=== PATIENT | female | born 1995 | race Caucasian/White ===

== ENCOUNTER 2018-08-02 22:31 | Emergency (ER) | payer MEDICAID ==
[2018-08-02 22:34] VITALS: BMI 24.0
[2018-08-02] MEDS ORDERED: Sodium Chloride 0.9% 1,000 ML IV STA (22:48)
[2018-08-02 23:52] VITALS: O2SAT 98
--- NOTE | 2018-08-02 23:57 | ED PDOC ---
Arrival/HPI - General Historian: Patient <Demetria Cadena - Last Filed: 08/03/18 02:09> <Prince Tejeda - Last Filed: 08/03/18 02:49> - General Chief Complaint: Abdominal Pain Time Seen by Provider: 08/02/18 22:44 - History of Present Illness Narrative History of Present Illness (Text): 08/02/18 23:54 23-year-old female presents today with many month history of lower abdominal pain patient states she's been having abdominal pain for at least the past 7 months. Patient states the pains been intermittent but always seems to be worse after running. Patient states she is also dyspareunia. patient states during intercourse the pain is always in the same spot which she points to the suprapubic region. Patient denies vaginal bleeding or vaginal discharge. She denies radiation of pain to the back she is complaining of nausea. Patient states symptoms worsened today after running. Patient states she's been seen multiple times at other hospitals and has been told that there is nothing wrong with her. (Demetria Cadena) Past Medical History - Provider Review Nursing Documentation Reviewed: Yes - Travel History Have you recently traveled outside [place] w/in the past 3 mons?: No - Infectious Disease Hx of Infectious Diseases: None - Neurological Hx Migraine: Yes - Renal Hx Renal Disorder: No - Endocrine/Metabolic Hx Endocrine Disorders: No - Hematological/Oncological Hx Blood Disorders: No - Integumentary Hx Dermatological Disorder: No - Musculoskeletal/Rheumatological Hx Musculoskeletal Disorders: No - Gastrointestinal Hx Gastrointestinal Disorders: No - Genitourinary/Gynecological Hx Genitourinary Disorders: No - Psychiatric Hx Psychophysiologic Disorder: No Hx Substance Use: No - Anesthesia Hx Anesthesia: No <Demetria Cadena - Last Filed: 08/03/18 02:09> Family/Social History - Physician Review Nursing Documentation Reviewed: Yes Family/Social History: Unknown Family HX Smoking Status: Never Smoked Hx Alcohol Use: No Hx Substance Use: No <Demetria Cadena - Last Filed: 08/03/18 02:09> Allergies/Home Meds <Demetria Cadena - Last Filed: 08/03/18 02:09> <Prince Tejeda - Last Filed: 08/03/18 02:49> Allergies/Adverse Reactions: Allergies No Known Allergies Allergy (Verified 09/27/15 23:27) Home Medications: Home Meds Medication Instructions Recorded Confirmed Vits96/Iron Fum/Folic 1 tab PO DAILY 09/27/15 10/07/15 [] Review of Systems - Review of Systems Constitutional: absent: Fatigue, Fevers Respiratory: absent: SOB, Cough Cardiovascular: absent: Chest Pain, Palpitations Gastrointestinal: Abdominal Pain, Nausea, Vomiting. absent: Constipation, Diarrhea Genitourinary Female: absent: Dysuria, Frequency, Vaginal Bleeding, Vaginal Discharge Musculoskeletal: absent: Arthralgias, Back Pain, Neck Pain Skin: absent: Rash, Pruritis Neurological: absent: Headache, Dizziness Psychiatric: absent: Anxiety, Depression <Demetria Cadena T - Last Filed: 08/03/18 02:09> Physical Exam Vital Signs Reviewed: Yes Temperature: Afebrile Blood Pressure: Normal Pulse: Regular Respiratory Rate: Normal Appearance: Positive for: Well-Appearing, Non-Toxic, Comfortable Pain Distress: None Mental Status: Positive for: Alert and Oriented X 3 - Systems Exam Head: Present: Atraumatic Mouth: Present: Moist Mucous Membranes Neck: Present: Normal Range of Motion Respiratory/Chest: Present: Clear to Auscultation, Good Air Exchange. No: Respiratory Distress, Accessory Muscle Use Cardiovascular: Present: Regular Rate and Rhythm, Normal S1, S2. No: Murmurs Abdomen: Present: Tenderness (+ suprapubic tenderness). No: Distention, Rebound , Guarding Genitourinary/Pelvic Exam: Present: Normal External Genitalia, Vaginal Discharge , Cervical Motion Tendernes, Other (chaparoned by ER EMT Tiff). No: Vaginal Bleeding, Vaginal Lesions, Adenexal Tenderness, Adenexal Mass Back: Present: Normal Inspection. No: CVA Tenderness, Midline Tenderness, Paraspinal Tenderness Upper Extremity: Present: Normal ROM Lower Extremity: Present: Normal ROM Neurological: Present: GCS=15, Speech Normal Skin: Present: Warm, Dry, Normal Color. No: Rashes Psychiatric: Present: Alert, Oriented x 3 <Demetria Cadena T - Last Filed: 08/03/18 02:09> Vital Signs Temp Pulse Resp BP Pulse Ox 08/03/18 02:48 50 L 16 110/59 L 98 08/02/18 23:51 98 F 54 L 18 108/54 L 98 Medical Decision Making <Demetria Cadena - Last Filed: 08/03/18 02:09> <Prince Tejeda - Last Filed: 08/03/18 02:49> ED Course and Treatment: 08/03/18 00:00 Patient is nontoxic well appearing with stable vital signs presenting with lower abdominal pain CBC: wbc:12.6 CMP: wnl Lipase: wnl Urinalysis: gc/chlamydia pending; pt with white vaginal discharge with CMT ; will give rocephin and zithromax will d/c home on doxycycline x 14 days for PID. Patient reassessment: pt is non toxic well appearing; no distress. stable vitals. Ultrasound: CAT scan: 08/03/18 02:09 case signed out to dr. tejeda pending CT/US/UA, re-evaluation and disposition. (Demetria Cadena) 08/03/18 02:43 EXAM: CT Abdomen and Pelvis With Intravenous Contrast EXAM DATE/TIME: 08/02/2018 10:54 PM Dictated and Authenticated by: Taj Gooden MD 08/03/2018 2:37 AM Eastern Time ([place]) IMPRESSION: 1. Trace free pelvic fluid. Left ovarian dominant follicle. EXAM: US Pelvis Complete, Transabdominal US Pelvis, Transvaginal US Duplex Arterial/Venous of the Pelvis, Complete Dictated and Authenticated by: Taj Gooden MD 08/03/2018 2:28 AM Eastern Time ([place]) IMPRESSION: Left ovarian dominant follicle measuring 2.0 x 1.4 x 2.2 cm. Addendum created by Taj Gooden MD on 08/03/2018 2:34 AM Eastern Time ([place]) Possible trace free pelvic fluid seen on image 15 series 1 which is confirmed on the CT scan. Initial Report created on 08/03/2018 2:28 AM Eastern Time ([place]) 08/03/18 02:49 On reevaluation the patient feels better and is in no acute distress. I have discussed the results and plan with the patient, who expresses understanding. Patient given the opportunity to ask question, all questions were answered and there is agreement with the plan to discharge the patient home. Patient is stable for discharge. Patient was instructed to follow up with physician/clinic in 1-2 days or return if symptoms persist/worsen or new concerning symptoms arise. (Prince Tejeda) - Lab Interpretations Lab Results: 08/02/18 23:56 08/02/18 23:56 Lab Results 08/03/18 01:45: Urine Color Yellow, Urine Appearance Clear, Urine pH 6.0, Ur Specific [place] 1.020, Urine Protein Trace H, Urine Glucose (UA) Negative, Urine Ketones Trace H, Urine Blood Negative, Urine Nitrate Negative, Urine Bilirubin Negative, Urine Urobilinogen 0.2, Ur Leukocyte Esterase Negative, Urine RBC 0 - 2, Urine WBC 1 - 3, Ur Epithelial Cells 4 - 5, Urine Bacteria Small 08/02/18 23:56: WBC 12.6 H, RBC 4.89, Hgb 12.9, Hct 37.7, MCV 77.1 L, MCH 26.4, MCHC 34.2, RDW 14.3, Plt Count 217, MPV 9.5, Gran % 76.8 H, Lymph % (Auto) 15.2 L, [place] % (Auto) 7.2 H, Eos % (Auto) 0.6 L, Baso % (Auto) 0.2, Gran # 9.66 H, Lymph # (Auto) 1.9, [place] # (Auto) 0.9 H, Eos # (Auto) 0.1, Baso # (Auto) 0.02 08/02/18 23:56: Sodium 138, Potassium 4.3, Chloride 100, Carbon Dioxide 26, Anion Gap 17, BUN 26 H, Creatinine 1.0, Est GFR ( Amer) > 60, Est GFR ( Non-Af Amer) > 60, Random Glucose 82, Calcium 9.8, Total Bilirubin 0.8, AST 33, ALT 20, Alkaline Phosphatase 62, Total Protein 8.7 H, Albumin 5.0 H, Globulin 3.7, Albumin/Globulin Ratio 1.4, Lipase 233 - RAD Interpretation Radiology Orders: 08/02/18 22:54 ABD & PELVIS IV CONTRAST ONLY [CT] Stat TRANSVAGINAL [US] Stat - Medication Orders Current Medication Orders: Discontinued Medications Azithromycin (Zithromax) 1,000 mg PO STAT STA PRN Reason: Protocol Stop: 08/03/18 01:54 Ceftriaxone Sodium (Rocephin) 250 mg IM STAT STA PRN Reason: Protocol Stop: 08/03/18 01:54 Sodium Chloride (Sodium Chloride 0.9%) 1,000 mls @ 999 mls/hr IV .Q1H1M STA Stop: 08/02/18 23:48 Last Admin: 08/02/18 23:50 Dose: 999 mls/hr eMAR Start Stop Document 08/02/18 23:50 RG (Rec: 08/02/18 23:41 RG [id number]) Intravenous Solution Start Date 08/02/18 Start Time 23:41 - PA / BAND BUILDER / Resident Statement DIALLO has reviewed & agrees with the documentation as recorded. DIALLO has examined the patient and agrees with the treatment plan. <Prince Tejeda - Last Filed: 08/03/18 02:49> Disposition/Present on Arrival - Present on Arrival Any Indicators Present on Arrival: No History of DVT/PE: No History of Uncontrolled Diabetes: No Urinary Catheter: No History of Decub. Ulcer: No History Surgical Site Infection Following: None - Disposition Patient Plan: Discharge <Demetria Cadena - Last Filed: 08/03/18 02:09> - Present on Arrival Any Indicators Present on Arrival: No - Disposition Have Diagnosis and Disposition been Completed?: Yes Disposition Time: 02:46 Patient Plan: Discharge <CollinsPrince - Last Filed: 08/03/18 02:49> - Disposition Diagnosis: PID (pelvic inflammatory disease) Disposition: HOME/ ROUTINE Patient Problems: Current Active Problems Problem Status Onset PID (pelvic inflammatory disease) Acute Condition: GOOD Discharge Instructions (ExitCare): Pelvic Inflammatory Disease (DC) Additional Instructions: Motrin every 6 hours as needed for pain doxycyline; 1 tablet twice daily x 14 days. Follow up with primary care physician within the next 2 days Follow up with the [facility] [employer] [facility] within the next 2 days. Increase fluids. Return immediately if symptoms worsen persist or if new symptoms develop: High fevers, increasing pain, vomiting, diarrhea or any other concerning symptoms develop Prescriptions: Doxycycline Hyclate 100 mg PO BID #28 capsule Referrals: Morgan Shaw MD [Primary Care Provider] - Follow up with primary Forms: [employer] ([place]), WORK NOTE
[2018-08-03 00:04] LABS: BASO # 0.02 K/mm3 (0.0-2.0); BASO % 0.2 % (0.0-3.0); EOS # 0.1 (0.0-0.7); EOS % 0.6 % (1.5-5.0); GRAN # 9.66 (1.4-6.5); GRAN % 76.8 % (50.0-68.0); HEMOGLOBIN 12.9 g/dL (12.0-16.0); LYMPH # 1.9 (1.2-3.4); LYMPH % 15.2 % (22.0-35.0); MEAN CELL VOLUME 77.1 fl (80.0-105.0); MEAN CORPUSCULAR HEMOGLOBIN 26.4 pg (25.0-35.0); MEAN CORPUSCULAR HGB CONC 34.2 g/dl (31.0-37.0); MEAN PLATELET VOLUME 9.5 fl (7.0-11.0); MONO # 0.9 (0.1-0.6); MONO % 7.2 % (1.0-6.0); RBC 4.89 10^6/uL (3.5-6.1); RED CELL DISTRIBUTION WIDTH 14.3 % (11.5-14.5); WHITE BLOOD COUNT 12.6 10^3/ul (4.5-11.0)
[2018-08-03 00:12] LABS: ALB/GLOB RATIO 1.4 (1.1-1.8); ALT/SGPT 20 U/L (7-56); AST/SGOT 33 U/L (14-36); BLOOD UREA NITROGEN 26 mg/dL (7-21); CALCIUM 9.8 mg/dL (8.4-10.5); GFR NON-AFRICAN AMERICAN > 60; LIPASE 233 U/L (23-300)
[2018-08-03] MEDS ORDERED: Iohexol 350 MG/100 ML VIAL ONE (00:28)
[2018-08-03] MEDS ORDERED: cefTRIAXone (Rocephin) 250 mg Inj IM STA (01:53)
[2018-08-03 02:03] LABS: URINE BILIRUBIN NEGATIVE (NEGATIVE); URINE BLOOD NEGATIVE (NEGATIVE); URINE GLUCOSE (UA) NEGATIVE (NEGATIVE); URINE LEUKOCYTE ESTERASE NEGATIVE Leu/uL (NEGATIVE); URINE PROTEIN TRACE mg/dL (<30 mg/dL); URINE UROBILINOGEN 0.2 E.U./dL (<1 E.U./dL)
[2018-08-03 02:14] LABS: URINE APPEARANCE CLEAR (CLEAR); URINE COLOR YELLOW (YELLOW)
[2018-08-03 02:16] LABS: URINE RBC 0 - 2 /hpf (0-2)
[2018-08-03 02:17] LABS: URINE BACTERIA SMALL (NEG)
[2018-08-03 02:48] VITALS: BP 110/59; PULSE 50; RESP 16
[2018-08-03 03:04] VITALS: TEMP 97.8
--- NOTE | 2018-08-03 09:01 | CT ---
Date of service: 08/03/2018 PROCEDURE: CT Abdomen and Pelvis with contrast HISTORY: abd pain COMPARISON: None. TECHNIQUE: Contrast dose: 100 mL of Omnipaque 350 intravenously. Axial and reformatted coronal and sagittal CT images of the abdomen and pelvis were obtained after IV contrast administration. Radiation dose: Total exam DLP = 2088.28 mGy-cm. This CT exam was performed using one or more of the following dose reduction techniques: Automated exposure control, adjustment of the mA and/or kV according to patient size, and/or use of iterative reconstruction technique. FINDINGS: LOWER THORAX: Unremarkable. LIVER: Unremarkable. No gross lesion or ductal dilatation. GALLBLADDER AND BILE DUCTS: Unremarkable. PANCREAS: Unremarkable. No gross lesion or ductal dilatation. SPLEEN: Unremarkable. ADRENALS: Unremarkable. No mass. KIDNEYS AND URETERS: Unremarkable. No hydronephrosis. No solid mass. VASCULATURE: Unremarkable. No aortic aneurysm. BOWEL: Unremarkable. No obstruction. No gross mural thickening. APPENDIX: Normal appendix. PERITONEUM: Unremarkable. No free fluid. No free air. LYMPH NODES: Unremarkable. No enlarged lymph nodes. BLADDER: Mild urinary bladder wall thickening is noted. REPRODUCTIVE: The uterus is slightly heterogeneous. The left adnexa is prominent in size contains 21.1 centimeter cyst may represent prominent follicle. BONES: No acute fracture. OTHER FINDINGS: None. IMPRESSION: No evidence of right cholecystitis pancreatitis or appendicitis. Prominent left adnexa contains 2.1 centimeters cyst. Mild urinary bladder wall thickening. Preliminary report was submitted by [facility].
--- NOTE | 2018-08-03 13:17 | US ---
Date of service: 08/03/2018 HISTORY: pain COMPARISON: None available. TECHNIQUE: Transvaginal pelvic ultrasound FINDINGS: UTERUS: Measures 8.1 x 3.2 x 5.7 cm. Anteverted. ENDOMETRIUM: Measures 6 mm in diameter. CERVIX: No cervical abnormality identified. RIGHT OVARY: Measures 2.7 x 2.8 x 3.0 cm. Blood flow is demonstrated. LEFT OVARY: Measures 3.2 x 2.9 x 3.1 cm. Blood flow is demonstrated. 2.0 x 1.4 x 2.2 cm dominant follicle/cyst. FREE FLUID: No significant free fluid noted. OTHER FINDINGS: None. IMPRESSION: Unremarkable pelvic ultrasound as above. Preliminary impression was provided by [facility].
== END 2018-08-03 03:00 | disposition home or self-care (01) ==
LOC: ED 22:31
DX: N73.9 Female pelvic inflammatory disease, unspecified (principal)
CPT/HCPCS: 74177; 76830; 80053; 81001; 83690; 85025; 87086; 87491; 87591; 96372; 99284; J0696; J7030; Q9967